=== PATIENT | male | born 1960 | race Caucasian/White ===

== ENCOUNTER 2017-01-21 09:00 | Day surgery (SDC) | payer BC ==
[~2017-01-21] VITALS: Ht 185.4 cm; Wt 146.0 kg
[2017-01-21 09:47] VITALS: Ht 185.4 cm; Wt 146.0 kg
[2017-01-21 10:11] VITALS: BP 119/69; PULSE 71; RESP 16
[2017-01-21] MEDS ORDERED: FENTAnyl 50 MCG/ML VIAL ONE (10:15)
[2017-01-21] MEDS ORDERED: PROPOFOL 40 ML ONE (10:15)
--- NOTE | 2017-01-21 11:10 | GILP ---
DATE OF PROCEDURE: PROCEDURE PERFORMED: Esophagogastroduodenoscopy with biopsy and colonoscopy. INDICATION: A 56-year-old male undergoing this procedure for dysphagia and rectal bleeding. The ri sks of the procedure, related and unrelated complications, anesthetic risks, and alternatives were d iscussed. Informed consent was obtained. DESCRIPTION OF PROCEDURE: The patient was brought to the GI lab, sedated by the anesthesiologist. A fter optimum sedation, the scope was passed with much ease into the oropharyngeal cavity. Introitus of the esophagus was examined. There was a small polyp 8 mm in diameter in the pharynx, which need s to be evaluated by the ENT surgeon. The esophagus was normal. The Z line was at 40 cm. Stomach m ucosa revealed gastritis. Multiple biopsies were obtained. Duodenal mucosa showed a very flat area about 0.5 cm in diameter near the apex of the duodenum, the exact significance of which was unclear . Biopsies were taken. Duodenum, first and second part, otherwise were within normal limits. Retr oflexion was normal. IMPRESSION: 1. Polyp in the pharynx. Needs to be evaluated by the ENT surgeon, a small polyp. 2. Normal esophagus. 3. Normal Z-line at 40 cm. 4. Gastritis. 5. Flat lesion in the duodenum, successfully biopsied. PLAN: Review histopathology, ENT evaluation. COLONOSCOPY REPORT: The patient was turned around and the scope was passed with much ease into the rectum, advanced through the sigmoid, descending and transverse colon all the way into the cecum. A ppendiceal orifice and IC valve were identified. The patient had a redundant and long colon. The w hole scope was inside. While coming out the mucosa was thoroughly inspected. The rest of the colon was normal. Retroversion was done and hemorrhoids were identified. IMPRESSION: 1. Normal findings all the way into the cecum except for the hemorrhoids, which is the cause of her rectal bleeding. 2. Clarity was good. Cleanliness was adequate. PLAN: Have a Sitz bath and Anusol-HC suppository. Dictated By: CLAUS HOWE/THOMAS Conf#: [id number] DID#: [id number] CC: VEENA LANG MD;*EndCC*
[2017-01-21 11:20] VITALS: BP 129/75; PULSE 69; RESP 18
[2017-01-21 13:30] VITALS: BP 107/66; PULSE 72; RESP 12
== END 2017-01-21 12:53 | disposition home or self-care (01) ==
LOC: GIL 09:00
PROVIDERS: ATTEND Internal Medicine Gastroenterology
DX: K29.50 Unspecified chronic gastritis without bleeding (principal); E66.9 Obesity, unspecified; Z68.41 Body mass index [BMI] 40.0-44.9, adult
CPT/HCPCS: 43239; 45378; 88305; 88312; J3010; Z7610